=== PATIENT | female | born 1985 | race African-American/Black ===

== ENCOUNTER 2017-03-16 20:21 | Emergency (ER) | payer MEDICAID ==
[~2017-03-16] VITALS: Ht 147.3 cm; Wt 73.0 kg
[2017-03-17 03:34] LABS: BASOPHILS % 0.5 % (0.0-2.0); HEMOGLOBIN. 12.9 g/dL (12.0-16.0); LYMPHOCYTES % 35.8 % (20.0-50.0); MEAN CORPUSCULAR HEMOGLOBIN 30.2 pg (28.0-32.0); MEAN CORPUSCULAR VOLUME 88.8 fL (81.0-99.0); NEUTROPHILS % 54.7 % (40.0-76.0); PLATELET 339 x1000/uL (130-400); RED BLOOD CELL COUNT 4.28 mill/uL (4.2-5.4); RED CELL DISTRIBUTION WIDTH 14.2 % (11.6-14.6)
[2017-03-17 03:48] LABS: HCG SCREEN NEGATIVE
[2017-03-17 03:51] LABS: CARBON DIOXIDE 26 mEq/L (21-32); CHLORIDE 106 mEq/L (98-107)
[2017-03-17] MEDS ORDERED: KETOROLAC 30MG/ML VIAL IV ONE (05:45)
[2017-03-17] MEDS ORDERED: METOCLOPRAMIDE HCL 10MG TABLET PO ONE (05:45)
[2017-03-17 05:54] VITALS: BP 152/42
== END 2017-03-17 07:08 | disposition home or self-care (01) ==
LOC: ER 03-17 02:33
DX: R51 Headache (principal)
CPT/HCPCS: 36415; 70450; 80048; 82962; 84703; 85025; 96374; 99285; J1885; Z7610; J8597